=== PATIENT | male | born 2000 | race Two or more races ===

== ENCOUNTER 2019-10-18 20:41 | Emergency (ER) | payer OTHER ==
[~2019-10-18] VITALS: Ht 167.6 cm; Wt 59.6 kg
[2019-10-18] MEDS ORDERED: MORPHINE SULFATE 4 MG/ML, 1ML ONE (20:46)
[2019-10-18] MEDS ORDERED: ONDANSETRON 2MG/ML, 2ML ONE (20:46)
--- NOTE | 2019-10-18 20:50 | NUR ---
TASK RN: PT MEDICATED W/ 4MG ZOFRAN AND 4MG MORPHINE PER VERBAL ORDER.
--- NOTE | 2019-10-18 20:51 | NUR ---
REPORT GIVEN TO STACIA MANCUSO RN AT [facility]
--- NOTE | 2019-10-18 20:53 | NUR ---
REMSA AT BEDSIDE
[2019-10-18 21:01] VITALS: BP 134/74
[2019-10-18] MEDS ORDERED: MORPHINE SULFATE 4 MG/ML, 1ML IVPush PRN (21:30)
[2019-10-18] MEDS ORDERED: ONDANSETRON 2MG/ML, 2ML IVPush ONE (21:30)
== END 2019-10-18 21:13 | disposition short-term general hospital (02) ==
LOC: ED 20:56
DX: S71.102A Unspecified open wound, left thigh, initial encounter (principal); W33.01XA Accidental discharge of shotgun, initial encounter; Y93.01 Activity, walking, marching and hiking; Y92.830 Public park as the place of occurrence of the external cause; Y99.9 Unspecified external cause status
CPT/HCPCS: 96374; 96375; 99291; J2270; J2405

== ENCOUNTER 2019-10-26 11:53 | Emergency (ER) | payer OTHER ==
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
[2019-10-26 12:21] VITALS: BP 122/76
== END 2019-10-26 13:11 | disposition short-term general hospital (02) ==
LOC: EDBD 11:53 → MERGE 11:53 → ED 12:28
DX: S31.104A Unspecified open wound of abdominal wall, left lower quadrant without penetration into peritoneal cavity, initial encounter (principal); L76.22 Postprocedural hemorrhage of skin and subcutaneous tissue following other procedure; W34.09XA Accidental discharge from other specified firearms, initial encounter; Y93.89 Activity, other specified; Y92.89 Other specified places as the place of occurrence of the external cause; Y99.8 Other external cause status
CPT/HCPCS: 99291